=== PATIENT | female | born 1970 | race Two or more races ===

== ENCOUNTER 2018-05-14 06:23 | Inpatient (IN) | payer OTHER ==
[2018-05-14] MEDS ORDERED: ACETAMINOPHEN 325 MG TAB PO (09:30)
[2018-05-14] MEDS ORDERED: DOCUSATE SODIUM 100 MG CAP PO (09:30)
[2018-05-14] MEDS ORDERED: HYDROCODONE/APAP (5/325) TAB PO (09:30)
[2018-05-14] MEDS ORDERED: ALBUTEROL/IPRATROPIUM (NEB) 3 ML AMP HHN (09:30)
[2018-05-14] MEDS ORDERED: NACL 0.9% 3 ML SYG IV (09:30)
[2018-05-14] MEDS ORDERED: NITROGLYCERIN (SL) 0.4 MG TAB SL (09:30)
[2018-05-14] MEDS ORDERED: ONDANSETRON 4 MG INJ IV (09:30)
[2018-05-14] MEDS: CEFTRIAXONE 1 GM/50 ML (PMX) 50 ML IVPB (10:54)
[2018-05-14 11:49] LABS: ADD MAN DIFF? NO
[2018-05-14 11:58] LABS: BASOPHILS % 0.3 % (0.0-2.0); EOSINOPHILS # 0.1 10^3/ul (0.0-0.5); HEMATOCRIT 37.5 % (37.0-47.0); HEMOGLOBIN 11.9 g/dl (12.0-16.0); LYMPHOCYTES # 1.6 10^3/ul (0.8-2.9); LYMPHOCYTES % 18.4 % (15.0-51.0); MEAN CORPUSCULAR HEMOGLOBIN 30.1 pg (29.0-33.0); MEAN CORPUSCULAR HGB CONC 31.7 g/dl (32.0-37.0); MEAN CORPUSCULAR VOLUME 94.7 fl (82.0-101.0); MEAN PLATELET VOLUME 11.1 fl (7.4-10.4); MONOCYTE # 0.3 10^3/ul (0.3-0.9); MONOCYTES % 3.1 % (0.0-11.0); NEUTROPHIL # 6.6 10^3/ul (1.6-7.5); NEUTROPHILS % 76.6 % (39.0-77.0); PLATELET COUNT 210 10^3/UL (140-415); RED BLOOD COUNT 3.96 10^6/ul (4.20-5.40); RED CELL DISTRIBUTION WIDTH 13.9 % (11.5-14.5)
[2018-05-14 11:58] LABS: WHITE BLOOD COUNT 8.7 10^3/ul (4.8-10.8)
[2018-05-14 12:13] LABS: HEMOGLOBIN A1C 5.4 % (0-5.9)
[2018-05-14 12:17] LABS: ALANINE AMINOTRANSFERASE 55 IU/L (13-69); ALBUMIN/GLOBULIN RATIO 1.53; ALKALINE PHOSPHATASE 33 IU/L (42-121); ANION GAP 10 (5-13); ASPARTATE AMINO TRANSFERASE 33 IU/L (15-46); BILIRUBIN,INDIRECT 0.4 mg/dl (0-1.1); BILIRUBIN,TOTAL 0.4 mg/dl (0.2-1.3); BLOOD UREA NITROGEN 10 mg/dl (7-20); CALCIUM 9.4 mg/dl (8.4-10.2); CARBON DIOXIDE 25 mmol/L (21-31); CHLORIDE 108 mmol/L (97-110); CHOL/HDL RATIO 3.1 RATIO; CHOLESTEROL 125 mg/dl (100-200); CREATINE KINASE 37 IU/L (23-200); CREATININE 0.66 mg/dl (0.44-1.00); Estimated GFR > 60 mL/min (>60); GLUCOSE 143 mg/dl (70-220); HDL CHOLESTEROL 40 mg/dl (34-88); LDL CHOLESTEROL,CALCULATED 75 mg/dl; POTASSIUM 4.5 mmol/L (3.5-5.1); SODIUM 143 mmol/L (135-144); TOTAL PROTEIN 6.6 g/dl (6.1-8.1); TRIGLYCERIDES 50 mg/dl (0-149)
[2018-05-14 12:20] LABS: ANION GAP 10 (5-13); BLOOD UREA NITROGEN 11 mg/dl (7-20); CALCIUM 9.2 mg/dl (8.4-10.2); CARBON DIOXIDE 26 mmol/L (21-31); CHLORIDE 108 mmol/L (97-110); CREATININE 0.65 mg/dl (0.44-1.00); Estimated GFR > 60 mL/min (>60); GLUCOSE 144 mg/dl (70-220); MAGNESIUM 1.8 mg/dl (1.7-2.5); PHOSPHORUS 3.8 mg/dl (2.5-4.9); POTASSIUM 4.3 mmol/L (3.5-5.1); SODIUM 144 mmol/L (135-144)
[2018-05-14 12:28] LABS: CK INDEX 2.5
[2018-05-14 12:29] LABS: CK-MB 0.91 ng/ml (0.0-2.4); TROPONIN-I < 0.012 ng/ml (0.000-0.120)
[2018-05-14] MEDS: ALBUTEROL/IPRATROPIUM (NEB) 3 ML AMP HHN ×3 (13:39→20:14)
[2018-05-14] MEDS: GUAIFENESIN/DM (SR) TAB PO (20:49)
[2018-05-15 06:32] LABS: ADD MAN DIFF? NO
[2018-05-15 06:39] LABS: BASOPHIL # 0.1 10^3/ul (0.0-0.1); BASOPHILS % 0.6 % (0.0-2.0); EOSINOPHILS # 0.3 10^3/ul (0.0-0.5); EOSINOPHILS % 3.3 % (0.0-7.0); HEMATOCRIT 36.3 % (37.0-47.0); HEMOGLOBIN 11.4 g/dl (12.0-16.0); LYMPHOCYTES # 2.4 10^3/ul (0.8-2.9); LYMPHOCYTES % 26.5 % (15.0-51.0); MEAN CORPUSCULAR HEMOGLOBIN 29.5 pg (29.0-33.0); MEAN CORPUSCULAR HGB CONC 31.4 g/dl (32.0-37.0); MEAN PLATELET VOLUME 11.5 fl (7.4-10.4); MONOCYTE # 0.6 10^3/ul (0.3-0.9); MONOCYTES % 6.1 % (0.0-11.0); NEUTROPHIL # 5.7 10^3/ul (1.6-7.5); NEUTROPHILS % 62.7 % (39.0-77.0); PLATELET COUNT 209 10^3/UL (140-415); RED BLOOD COUNT 3.86 10^6/ul (4.20-5.40); RED CELL DISTRIBUTION WIDTH 13.9 % (11.5-14.5)
[2018-05-15 07:09] LABS: ANION GAP 11 (5-13); BLOOD UREA NITROGEN 14 mg/dl (7-20); CALCIUM 9.4 mg/dl (8.4-10.2); CARBON DIOXIDE 25 mmol/L (21-31); CHLORIDE 106 mmol/L (97-110); CREATININE 0.75 mg/dl (0.44-1.00); Estimated GFR > 60 mL/min (>60); GLUCOSE 104 mg/dl (70-220); POTASSIUM 4.5 mmol/L (3.5-5.1); SODIUM 142 mmol/L (135-144)
[2018-05-15] MEDS: CEFTRIAXONE 1 GM/50 ML (PMX) 50 ML IVPB (08:55)
[2018-05-15] MEDS: ASPIRIN 81 MG TAB PO (08:57)
[2018-05-15] MEDS: GUAIFENESIN/DM (SR) TAB PO ×2 (08:57→23:01)
[2018-05-15] MEDS: ENOXAPARIN 40 MG/0.4 ML SYG SC (08:59)
[2018-05-15] MEDS: ALBUTEROL/IPRATROPIUM (NEB) 3 ML AMP HHN ×4 (10:17→20:34)
[2018-05-15 11:22] LABS: B-TYPE NATRIURETIC PEPTIDE 2620 PG/ML (0-125)
[2018-05-15] MEDS: FUROSEMIDE 20 MG INJ IV (18:19)
[2018-05-15] MEDS: DIGOXIN 500 MCG INJ IV (22:04)
[2018-05-16 05:52] LABS: CREATINE KINASE 30 IU/L (23-200)
[2018-05-16 05:58] LABS: ALANINE AMINOTRANSFERASE 49 IU/L (13-69); ALBUMIN/GLOBULIN RATIO 1.73; ALKALINE PHOSPHATASE 35 IU/L (42-121); ANION GAP 10 (5-13); ASPARTATE AMINO TRANSFERASE 33 IU/L (15-46); BILIRUBIN,INDIRECT 0.2 mg/dl (0-1.1); BILIRUBIN,TOTAL 0.2 mg/dl (0.2-1.3); BLOOD UREA NITROGEN 17 mg/dl (7-20); CALCIUM 9.3 mg/dl (8.4-10.2); CARBON DIOXIDE 27 mmol/L (21-31); CHLORIDE 104 mmol/L (97-110); CREATININE 0.64 mg/dl (0.44-1.00); Estimated GFR > 60 mL/min (>60); GLUCOSE 91 mg/dl (70-220); MAGNESIUM 1.7 mg/dl (1.7-2.5); SODIUM 141 mmol/L (135-144); TOTAL PROTEIN 6.3 g/dl (6.1-8.1)
[2018-05-16 06:03] LABS: B-TYPE NATRIURETIC PEPTIDE 3340 PG/ML (0-125)
[2018-05-16 06:04] LABS: CK INDEX 1.7; CK-MB 0.52 ng/ml (0.0-2.4)
[2018-05-16 06:25] LABS: THYROID STIMULATING HORMONE 0.999 MIU/L (0.465-4.680)
[2018-05-16] MEDS: ASPIRIN 81 MG TAB PO (08:07)
[2018-05-16] MEDS: GUAIFENESIN/DM (SR) TAB PO ×2 (08:07→20:56)
[2018-05-16] MEDS: LOSARTAN 25 MG TAB PO (08:07)
[2018-05-16] MEDS: CEFTRIAXONE 1 GM/50 ML (PMX) 50 ML IVPB (08:07)
[2018-05-16] MEDS: ENOXAPARIN 40 MG/0.4 ML SYG SC (08:15)
[2018-05-16] MEDS: ALBUTEROL/IPRATROPIUM (NEB) 3 ML AMP HHN ×4 (08:30→20:22)
[2018-05-16 09:45] LABS: ADD MAN DIFF? NO
[2018-05-16 09:46] LABS: BASOPHIL # 0.1 10^3/ul (0.0-0.1); BASOPHILS % 0.6 % (0.0-2.0); EOSINOPHILS # 0.4 10^3/ul (0.0-0.5); EOSINOPHILS % 3.6 % (0.0-7.0); HEMOGLOBIN 13.1 g/dl (12.0-16.0); LYMPHOCYTES % 17.1 % (15.0-51.0); MEAN CORPUSCULAR HEMOGLOBIN 30.3 pg (29.0-33.0); MEAN CORPUSCULAR HGB CONC 32.8 g/dl (32.0-37.0); MEAN CORPUSCULAR VOLUME 92.6 fl (82.0-101.0); MEAN PLATELET VOLUME 11.2 fl (7.4-10.4); MONOCYTE # 0.7 10^3/ul (0.3-0.9); MONOCYTES % 6.2 % (0.0-11.0); NEUTROPHIL # 8.6 10^3/ul (1.6-7.5); NEUTROPHILS % 71.7 % (39.0-77.0); PLATELET COUNT 227 10^3/UL (140-415); RED BLOOD COUNT 4.32 10^6/ul (4.20-5.40); RED CELL DISTRIBUTION WIDTH 14.1 % (11.5-14.5)
[2018-05-16 10:08] LABS: INR 0.93; PROTIME 12.6 Sec (11.9-14.9)
[2018-05-16 10:17] LABS: ALANINE AMINOTRANSFERASE 53 IU/L (13-69); ALBUMIN 4.4 g/dl (3.3-4.9); ALBUMIN/GLOBULIN RATIO 1.37; ALKALINE PHOSPHATASE 45 IU/L (42-121); ANION GAP 9 (5-13); ASPARTATE AMINO TRANSFERASE 35 IU/L (15-46); BILIRUBIN,INDIRECT 0.4 mg/dl (0-1.1); BILIRUBIN,TOTAL 0.4 mg/dl (0.2-1.3); BLOOD UREA NITROGEN 15 mg/dl (7-20); CALCIUM 9.7 mg/dl (8.4-10.2); CARBON DIOXIDE 28 mmol/L (21-31); CHLORIDE 106 mmol/L (97-110); CREATININE 0.73 mg/dl (0.44-1.00); Estimated GFR > 60 mL/min (>60); GLUCOSE 86 mg/dl (70-220); MAGNESIUM 1.8 mg/dl (1.7-2.5); SODIUM 143 mmol/L (135-144); TOTAL PROTEIN 7.6 g/dl (6.1-8.1)
[2018-05-16] MEDS: DIGOXIN 0.125 MG TAB PO (13:49)
[2018-05-16] MEDS: DIPHENHYDRAMINE 1%/ZINC 28.3 GM CR TOP ×2 (13:49→17:02)
[2018-05-17] MEDS: DIPHENHYDRAMINE 1%/ZINC 28.3 GM CR TOP ×5 (00:11→23:49)
[2018-05-17 05:34] LABS: ADD MAN DIFF? NO
[2018-05-17 05:39] LABS: BASOPHIL # 0.1 10^3/ul (0.0-0.1); BASOPHILS % 0.6 % (0.0-2.0); EOSINOPHILS # 0.5 10^3/ul (0.0-0.5); EOSINOPHILS % 4.9 % (0.0-7.0); HEMATOCRIT 39.1 % (37.0-47.0); HEMOGLOBIN 12.6 g/dl (12.0-16.0); LYMPHOCYTES # 2.1 10^3/ul (0.8-2.9); LYMPHOCYTES % 22.5 % (15.0-51.0); MEAN CORPUSCULAR HEMOGLOBIN 29.7 pg (29.0-33.0); MEAN CORPUSCULAR HGB CONC 32.2 g/dl (32.0-37.0); MEAN CORPUSCULAR VOLUME 92.2 fl (82.0-101.0); MEAN PLATELET VOLUME 11.1 fl (7.4-10.4); MONOCYTE # 0.6 10^3/ul (0.3-0.9); MONOCYTES % 5.9 % (0.0-11.0); NEUTROPHIL # 6.1 10^3/ul (1.6-7.5); NEUTROPHILS % 65.4 % (39.0-77.0); PLATELET COUNT 217 10^3/UL (140-415); RED BLOOD COUNT 4.24 10^6/ul (4.20-5.40); RED CELL DISTRIBUTION WIDTH 14.3 % (11.5-14.5)
[2018-05-17 05:39] LABS: WHITE BLOOD COUNT 9.4 10^3/ul (4.8-10.8)
[2018-05-17 06:18] LABS: ANION GAP 10 (5-13); BLOOD UREA NITROGEN 12 mg/dl (7-20); CALCIUM 9.7 mg/dl (8.4-10.2); CARBON DIOXIDE 25 mmol/L (21-31); CHLORIDE 106 mmol/L (97-110); Estimated GFR > 60 mL/min (>60); GLUCOSE 87 mg/dl (70-220); POTASSIUM 4.3 mmol/L (3.5-5.1); SODIUM 141 mmol/L (135-144)
[2018-05-17] MEDS: ALBUTEROL/IPRATROPIUM (NEB) 3 ML AMP HHN ×4 (08:46→20:06)
[2018-05-17] MEDS: LOSARTAN 25 MG TAB PO (09:00)
[2018-05-17] MEDS: ASPIRIN 81 MG TAB PO (09:08)
[2018-05-17] MEDS: GUAIFENESIN/DM (SR) TAB PO ×2 (09:08→20:48)
[2018-05-17] MEDS: ENOXAPARIN 40 MG/0.4 ML SYG SC (09:20)
[2018-05-17] MEDS: CEFTRIAXONE 1 GM/50 ML (PMX) 50 ML IVPB (09:23)
[2018-05-17] MEDS: DIGOXIN 0.125 MG TAB PO (12:06)
[2018-05-18] MEDS: DIPHENHYDRAMINE 1%/ZINC 28.3 GM CR TOP ×3 (05:52→18:00)
[2018-05-18 05:57] LABS: ADD MAN DIFF? NO
[2018-05-18 06:02] LABS: BASOPHIL # 0.1 10^3/ul (0.0-0.1); BASOPHILS % 0.6 % (0.0-2.0); EOSINOPHILS # 0.4 10^3/ul (0.0-0.5); EOSINOPHILS % 3.6 % (0.0-7.0); HEMATOCRIT 41.2 % (37.0-47.0); HEMOGLOBIN 13.3 g/dl (12.0-16.0); LYMPHOCYTES % 20.5 % (15.0-51.0); MEAN CORPUSCULAR HEMOGLOBIN 29.8 pg (29.0-33.0); MEAN CORPUSCULAR HGB CONC 32.3 g/dl (32.0-37.0); MEAN CORPUSCULAR VOLUME 92.2 fl (82.0-101.0); MEAN PLATELET VOLUME 10.9 fl (7.4-10.4); MONOCYTE # 0.6 10^3/ul (0.3-0.9); MONOCYTES % 6.5 % (0.0-11.0); NEUTROPHIL # 6.6 10^3/ul (1.6-7.5); PLATELET COUNT 222 10^3/UL (140-415); RED BLOOD COUNT 4.47 10^6/ul (4.20-5.40)
[2018-05-18 06:02] LABS: WHITE BLOOD COUNT 9.7 10^3/ul (4.8-10.8)
[2018-05-18 06:28] LABS: ALANINE AMINOTRANSFERASE 35 IU/L (13-69); ALBUMIN 4.3 g/dl (3.3-4.9); ALBUMIN/GLOBULIN RATIO 1.79; ALKALINE PHOSPHATASE 45 IU/L (42-121); ANION GAP 11 (5-13); ASPARTATE AMINO TRANSFERASE 29 IU/L (15-46); BILIRUBIN,INDIRECT 0.4 mg/dl (0-1.1); BILIRUBIN,TOTAL 0.4 mg/dl (0.2-1.3); BLOOD UREA NITROGEN 13 mg/dl (7-20); CALCIUM 9.8 mg/dl (8.4-10.2); CARBON DIOXIDE 24 mmol/L (21-31); CHLORIDE 106 mmol/L (97-110); Estimated GFR > 60 mL/min (>60); GLUCOSE 86 mg/dl (70-220); MAGNESIUM 1.9 mg/dl (1.7-2.5); POTASSIUM 4.5 mmol/L (3.5-5.1); SODIUM 141 mmol/L (135-144); TOTAL PROTEIN 6.7 g/dl (6.1-8.1)
[2018-05-18 06:33] LABS: B-TYPE NATRIURETIC PEPTIDE 1790 PG/ML (0-125)
[2018-05-18] MEDS ORDERED: FENTAnyl 50 MCG/ML VIAL (07:21)
[2018-05-18] MEDS ORDERED: IODIXANOL LOCM 100 ML BTL (07:21)
[2018-05-18] MEDS ORDERED: LIDOCAINE 2% (MDV) 20 ML INJ (07:21)
[2018-05-18] MEDS ORDERED: MIDAZOLAM 1 MG/ML 2 ML INJ (07:21)
[2018-05-18] MEDS ORDERED: HEPARIN 1000 UNITS/ML 10 ML INJ (07:21)
[2018-05-18] MEDS ORDERED: NITROGLYCERIN (IC) 100 MCG/ML INJ (07:22)
[2018-05-18] MEDS ORDERED: VERAPAMIL 5 MG INJ (07:22)
[2018-05-18] MEDS: ENOXAPARIN 40 MG/0.4 ML SYG SC (08:26)
[2018-05-18] MEDS: ASPIRIN 81 MG TAB PO (08:26)
[2018-05-18] MEDS ORDERED: morphine 2 MG INJ IV (08:30)
[2018-05-18] MEDS ORDERED: ACETAMINOPHEN 325 MG TAB PO (08:30)
[2018-05-18] MEDS: ALBUTEROL/IPRATROPIUM (NEB) 3 ML AMP HHN ×4 (09:00→20:49)
[2018-05-18] MEDS: LOSARTAN 25 MG TAB PO (09:00)
[2018-05-18] MEDS: SOD CHLORIDE 0.9% 1,000 ML IV (10:16)
[2018-05-18] MEDS: CEFTRIAXONE 1 GM/50 ML (PMX) 50 ML IVPB (11:06)
[2018-05-18] MEDS: GUAIFENESIN/DM (SR) TAB PO ×2 (12:31→20:37)
[2018-05-18] MEDS: DIGOXIN 0.125 MG TAB PO (13:26)
[2018-05-19] MEDS: DIPHENHYDRAMINE 1%/ZINC 28.3 GM CR TOP ×3 (00:29→12:05)
[2018-05-19] MEDS: ALBUTEROL/IPRATROPIUM (NEB) 3 ML AMP HHN ×2 (07:57→13:03)
[2018-05-19 08:12] LABS: ANION GAP 11 (5-13); BLOOD UREA NITROGEN 13 mg/dl (7-20); CALCIUM 9.6 mg/dl (8.4-10.2); CARBON DIOXIDE 24 mmol/L (21-31); CHLORIDE 106 mmol/L (97-110); CREATININE 0.55 mg/dl (0.44-1.00); Estimated GFR > 60 mL/min (>60); GLUCOSE 87 mg/dl (70-220); MAGNESIUM 1.9 mg/dl (1.7-2.5); POTASSIUM 4.3 mmol/L (3.5-5.1); SODIUM 141 mmol/L (135-144)
[2018-05-19] MEDS: ASPIRIN 81 MG TAB PO (09:03)
[2018-05-19] MEDS: GUAIFENESIN/DM (SR) TAB PO (09:03)
[2018-05-19] MEDS: LOSARTAN 25 MG TAB PO (09:03)
[2018-05-19] MEDS: CEFTRIAXONE 1 GM/50 ML (PMX) 50 ML IVPB (09:04)
[2018-05-19] MEDS: ENOXAPARIN 40 MG/0.4 ML SYG SC (09:06)
[2018-05-19] MEDS: DIGOXIN 0.125 MG TAB PO (12:58)
== END 2018-05-19 16:06 | disposition home or self-care (01) | DRG 286 ==
LOC: TEL 05-18 08:40 → 2NE 06:23 → 6WM 05-15 19:10
PROC: 4A023N7 Measurement of Cardiac Sampling and Pressure, Left Heart, Percutaneous Approach (ICD-10-PCS; principal; 2018-05-18 07:10)
PROC: B211YZZ Fluoroscopy of Multiple Coronary Arteries using Other Contrast (ICD-10-PCS; 2018-05-18 07:10)
PROC: B215YZZ Fluoroscopy of Left Heart using Other Contrast (ICD-10-PCS; 2018-05-18 07:10)
DX: I11.0 Hypertensive heart disease with heart failure (principal); I50.21 Acute systolic (congestive) heart failure; J18.9 Pneumonia, unspecified organism; I42.9 Cardiomyopathy, unspecified; I27.20 Pulmonary hypertension, unspecified; I35.0 Nonrheumatic aortic (valve) stenosis; K46.9 Unspecified abdominal hernia without obstruction or gangrene
CPT/HCPCS: 71045; 80048; 80053; 80061; 82550; 82553; 83036; 83735; 83880; 84100; 84443; 84484; 85025; 85610; 93005; 93306; 93458; 94640; 94664

== ENCOUNTER 2019-02-20 19:12 | Emergency (ER) | payer OTHER | END 2019-02-20 19:43 | disposition home or self-care (01) | LOC: E/R 19:43 | DX: S40.861A Insect bite (nonvenomous) of right upper arm, initial encounter (principal); S80.861A Insect bite (nonvenomous), right lower leg, initial encounter; S80.862A Insect bite (nonvenomous), left lower leg, initial encounter; W57.XXXA Bitten or stung by nonvenomous insect and other nonvenomous arthropods, initial encounter; Y92.9 Unspecified place or not applicable; Z79.82 Long term (current) use of aspirin | CPT/HCPCS: 99283; Z7502 ==